=== PATIENT | male | born 1990 | race Caucasian/White ===

== ENCOUNTER 2021-04-30 16:14 | Emergency (ER) | payer BC, SELFPAY ==
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
[2021-04-30 16:52] VITALS: BP 133/71; PULSE 62; RESP 16; TEMP 36.6; O2SAT 98; BMI 24.4
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
== END 2021-04-30 18:49 | disposition home or self-care (01) ==
PROVIDERS: Emergency Provider Emergency Medicine; PCP Family Medicine
DX: S22.32XA Fracture of one rib, left side, initial encounter for closed fracture (principal); W22.09XA Striking against other stationary object, initial encounter; Y93.9 Activity, unspecified; Y92.828 Other wilderness area as the place of occurrence of the external cause; Y99.9 Unspecified external cause status
CPT/HCPCS: 71100; 99283